=== PATIENT | female | born 1955 | race Caucasian/White ===

== ENCOUNTER 2017-08-27 00:27 | Inpatient (IN) | payer MEDICARE ==
[2017-08-27] MEDS: NITROGLYCERIN PREMIX 250 ML IV ×2 (00:34→07:34)
[2017-08-27 00:49] LABS: TROPONIN BY ISTAT 0.03 ng/ml (<0.08)
[2017-08-27 00:50] LABS: BASO # 0.1 x10^3/uL (0.0-0.2); BASO % 0 % (0-3); EOS # 0.3 x10^3/uL (0.0-0.7); EOS % 2 % (0-3); HEMATOCRIT 43.7 % (36.0-47.0); HEMOGLOBIN 14.5 g/dL (12.0-15.5); LYMPH # 10.9 x10^3/uL (1.0-4.8); LYMPH % 48 % (24-48); MEAN CORPUSCULAR HEMOGLOBIN 30 pg (25-35); MEAN CORPUSCULAR HGB CONC 33 g/dL (31-37); MEAN CORPUSCULAR VOLUME 89 fL (79-100); MONO # 1.9 x10^3/uL (0.0-1.1); MONO % 8 % (0-9); NEUT # 9.6 x10^3uL (1.8-7.7); NEUT % 42 % (31-73); PLATELET COUNT 567 x10^3/uL (140-400); RED CELL DISTRIBUTION WIDTH 14.5 % (11.5-14.5); WHITE BLOOD COUNT 22.8 x10^3/uL (4.0-11.0)
[2017-08-27 00:51] LABS: ADD MAN DIFF? YES
[2017-08-27 00:59] LABS: ANION GAP 13 (6-14); BLOOD UREA NITROGEN 21 mg/dL (7-20); BUN/CREATININE RATIO 16 (6-20); CALCIUM 8.9 mg/dL (8.5-10.1); CARBON DIOXIDE 26 mmol/L (21-32); CHLORIDE 102 mmol/L (98-107); CREATININE 1.3 mg/dL (0.6-1.0); GFR 41.4; GLUCOSE 354 mg/dL (70-99); INR 0.9 (0.8-1.1); POTASSIUM 4.8 mmol/L (3.5-5.1); PROTHROMBIN TIME PATIENT 11.4 SEC (11.7-14.0); SODIUM 141 mmol/L (136-145)
[2017-08-27] MEDS: ASPIRIN CHEWABLE 81 MG TABLET. PO ×2 (01:00→10:31)
[2017-08-27 01:07] LABS: ALBUMIN 2.2 g/dL (3.4-5.0); ALBUMIN/GLOBULIN RATIO 0.4 (1.0-1.7); ALK PHOS 156 U/L (46-116); ALT (SGPT) 26 U/L (14-59); AST (SGOT) 29 U/L (15-37); TOTAL BILIRUBIN 0.2 mg/dL (0.2-1.0); TOTAL PROTEIN 7.2 g/dL (6.4-8.2)
[2017-08-27 01:11] LABS: NT-PRO BNP 3648 pg/mL (0-124)
[2017-08-27 01:12] LABS: % ATYL 3 % (0-0); % EOS 2 % (0-5); % LYMPHS 48 % (24-48); % MONOS 6 % (0-10); % SEGS 41 % (35-66); PLT ESTIMATE INCREASED (ADEQUATE)
[2017-08-27] MEDS: FUROSEMIDE 40 MG/4 ML VIAL. IVP ×2 (01:35→10:29)
[2017-08-27 01:38] LABS: BASE EXCESS ABG -2 mmol/L (-3-3); HCO3 ABG 23 mmol/L (21-28); PCO2 ABG 40 mmHg (35-46); SAT O2 ABG 98 % (92-99)
[2017-08-27 01:39] LABS: PH ABG 7.38 (7.35-7.45)
[2017-08-27 07:25] LABS: TROPONINI 0.122 ng/mL (0.000-0.055)
[2017-08-27] MEDS ORDERED: DEXTROSE 50% 25 GM / 50ML DISP.SYRIN. IV (09:00)
[2017-08-27] MEDS ORDERED: NON FORMULARY ITEM (Buspirone Hcl 1 TAB) PO (09:00)
[2017-08-27] MEDS ORDERED: IPRATRPIUM/ALBUTEROL 0.5/2.5MG 3 ML NEBU. NEB (10:00)
[2017-08-27] MEDS ORDERED: SALIVA STIMULANT AGENT 44ML SPRAY BOTTLE. PO (10:00)
[2017-08-27 10:18] LABS: POC GLUCOSE 252 mg/dL (70-99)
[2017-08-27] MEDS: ENOXAPARIN 40 MG/0.4 ML SYRINGE. SQ ×2 (10:29→20:37)
[2017-08-27] MEDS: FAMOTIDINE 20 MG TABLET. PO ×2 (10:29→20:38)
[2017-08-27] MEDS: MORPHINE ER 30 MG TABLET.ER PO ×2 (10:30→17:04)
[2017-08-27] MEDS: CARVEDILOL 12.5 MG TABLET. PO ×2 (10:30→16:58)
[2017-08-27] MEDS ORDERED: ALBUTEROL SULFATE 2.5 MG/3 ML NEBU. NEB (10:30)
[2017-08-27] MEDS: GABAPENTIN 400 MG CAPSULE. PO ×3 (10:30→20:37)
[2017-08-27] MEDS: amLODIPine BESYLATE 10 MG TABLET PO (10:31)
[2017-08-27] MEDS: FUROSEMIDE 20 MG TABLET PO (10:31)
[2017-08-27] MEDS: busPIRone 5 MG TABLET. PO ×2 (10:31→20:38)
[2017-08-27] MEDS: INSULIN GLARGINE 300 UNITS/3 ML INSULN.PEN. SQ ×2 (10:48→20:45)
[2017-08-27] MEDS: INSULIN LISPRO 300 UNITS/3 ML INSULN.PEN. SQ ×4 (11:45→17:05)
[2017-08-27] MEDS ORDERED: NON FORMULARY ITEM (Albuterol Sulfate (Albuterol Sulfate Conc Neb Soln) 1 VIAL) NEB (12:00)
[2017-08-27] MEDS: BUDESONIDE 0.5 MG/2 ML NEBU. NEB ×2 (12:11→20:22)
[2017-08-27] MEDS: ALBUTEROL SULFATE 2.5 MG/3 ML NEBU. NEB ×4 (12:12→23:44)
[2017-08-27 15:09] LABS: MRSA BY PCR Negative (Negative)
[2017-08-27 17:04] LABS: POC GLUCOSE 236 mg/dL (70-99)
[2017-08-27 17:04] LABS: POC GLUCOSE 281 mg/dL (70-99)
[2017-08-27] MEDS ORDERED: INSULIN GLARGINE 300 UNITS/3 ML INSULN.PEN. SQ (18:00)
[2017-08-27] MEDS: NORTRIPTYLINE 25 MG CAPSULE PO (20:37)
[2017-08-27] MEDS: ATORVASTATIN CALCIUM 40 MG TABLET. PO (20:37)
[2017-08-27] MEDS: LISINOPRIL 20 MG TABLET PO (20:40)
[2017-08-27 20:48] LABS: POC GLUCOSE 205 mg/dL (70-99)
[2017-08-27] MEDS: ZOLPIDEM 5 MG TABLET. PO (20:54)
[2017-08-27] MEDS: oxyCODONE IR 5 MG TABLET PO (21:24)
[2017-08-28] MEDS: ALBUTEROL SULFATE 2.5 MG/3 ML NEBU. NEB ×8 (03:17→19:49)
[2017-08-28 07:15] LABS: ADD MAN DIFF? NO
[2017-08-28 07:29] LABS: BASO # 0.1 x10^3/uL (0.0-0.2); BASO % 1 % (0-3); EOS # 0.3 x10^3/uL (0.0-0.7); EOS % 2 % (0-3); HEMATOCRIT 31.7 % (36.0-47.0); HEMOGLOBIN 10.6 g/dL (12.0-15.5); LYMPH # 4.6 x10^3/uL (1.0-4.8); LYMPH % 33 % (24-48); MEAN CORPUSCULAR HEMOGLOBIN 29 pg (25-35); MEAN CORPUSCULAR HGB CONC 34 g/dL (31-37); MEAN CORPUSCULAR VOLUME 87 fL (79-100); MONO # 1.2 x10^3/uL (0.0-1.1); MONO % 9 % (0-9); NEUT # 7.8 x10^3uL (1.8-7.7); NEUT % 56 % (31-73); PLATELET COUNT 334 x10^3/uL (140-400); RED BLOOD COUNT 3.64 x10^6/uL (3.50-5.40)
[2017-08-28] MEDS: LEVOTHYROXINE 25 MCG TABLET. PO (07:44)
[2017-08-28] MEDS: LABETALOL 20 MG/4 ML DISP.SYRIN. IVP ×2 (07:45→11:17)
[2017-08-28] MEDS: INSULIN LISPRO 300 UNITS/3 ML INSULN.PEN. SQ ×6 (07:54→17:13)
[2017-08-28 07:55] LABS: ALBUMIN 1.9 g/dL (3.4-5.0); ALBUMIN/GLOBULIN RATIO 0.5 (1.0-1.7); ALK PHOS 104 U/L (46-116); ALT (SGPT) 19 U/L (14-59); ANION GAP 7 (6-14); AST (SGOT) 16 U/L (15-37); BLOOD UREA NITROGEN 22 mg/dL (7-20); BUN/CREATININE RATIO 22 (6-20); CALCIUM 8.1 mg/dL (8.5-10.1); CARBON DIOXIDE 29 mmol/L (21-32); CHLORIDE 105 mmol/L (98-107); GLUCOSE 133 mg/dL (70-99); POTASSIUM 3.9 mmol/L (3.5-5.1); SODIUM 141 mmol/L (136-145); TOTAL BILIRUBIN 0.3 mg/dL (0.2-1.0); TOTAL PROTEIN 5.8 g/dL (6.4-8.2)
[2017-08-28] MEDS: INSULIN GLARGINE 300 UNITS/3 ML INSULN.PEN. SQ ×2 (07:55→21:19)
[2017-08-28 07:57] LABS: POC GLUCOSE 160 mg/dL (70-99)
[2017-08-28] MEDS: BUDESONIDE 0.5 MG/2 ML NEBU. NEB ×2 (08:49→19:49)
[2017-08-28] MEDS: GABAPENTIN 400 MG CAPSULE. PO ×3 (09:35→21:12)
[2017-08-28] MEDS: ASPIRIN CHEWABLE 81 MG TABLET. PO (09:36)
[2017-08-28] MEDS: amLODIPine BESYLATE 10 MG TABLET PO (09:36)
[2017-08-28] MEDS: FAMOTIDINE 20 MG TABLET. PO ×2 (09:36→21:13)
[2017-08-28] MEDS: busPIRone 5 MG TABLET. PO ×2 (09:36→21:13)
[2017-08-28] MEDS: ENOXAPARIN 40 MG/0.4 ML SYRINGE. SQ ×2 (09:37→21:14)
[2017-08-28] MEDS: CARVEDILOL 12.5 MG TABLET. PO ×2 (09:37→17:08)
[2017-08-28] MEDS: MORPHINE ER 30 MG TABLET.ER PO ×2 (09:37→17:08)
[2017-08-28] MEDS: FUROSEMIDE 20 MG TABLET PO (09:39)
[2017-08-28] MEDS: LISINOPRIL 10 MG TABLET PO (12:38)
[2017-08-28 12:42] LABS: POC GLUCOSE 275 mg/dL (70-99)
[2017-08-28] MEDS ORDERED: ONDANSETRON PF 4 MG/2 ML VIAL. IV (14:15)
[2017-08-28] MEDS ORDERED: DOCUSATE SODIUM 100 MG CAPSULE. PO (14:15)
[2017-08-28] MEDS ORDERED: MORPHINE SULFATE 4 MG/ML DISP.SYRIN. IV (14:15)
[2017-08-28] MEDS ORDERED: traMADol 50 MG TABLET PO (14:15)
[2017-08-28] MEDS ORDERED: ACETAMINOPHEN 325 MG TABLET. PO (14:15)
[2017-08-28] MEDS: hydrALAZINE 20 MG/ML VIAL. IVP (15:37)
[2017-08-28 16:54] LABS: POC GLUCOSE 190 mg/dL (70-99)
[2017-08-28] MEDS: ALPRAZolam 0.25 MG TABLET PO (17:08)
[2017-08-28 20:56] LABS: POC GLUCOSE 177 mg/dL (70-99)
[2017-08-28] MEDS: ATORVASTATIN CALCIUM 40 MG TABLET. PO (21:12)
[2017-08-28] MEDS: ZOLPIDEM 5 MG TABLET. PO (21:12)
[2017-08-28] MEDS: NORTRIPTYLINE 25 MG CAPSULE PO (21:12)
[2017-08-28] MEDS: LISINOPRIL 20 MG TABLET PO (21:13)
[2017-08-29 04:15] LABS: ADD MAN DIFF? NO
[2017-08-29 04:17] LABS: BASO % 0 % (0-3); EOS # 0.3 x10^3/uL (0.0-0.7); EOS % 2 % (0-3); HEMATOCRIT 31.1 % (36.0-47.0); HEMOGLOBIN 10.4 g/dL (12.0-15.5); LYMPH # 3.8 x10^3/uL (1.0-4.8); LYMPH % 30 % (24-48); MEAN CORPUSCULAR HEMOGLOBIN 29 pg (25-35); MEAN CORPUSCULAR HGB CONC 34 g/dL (31-37); MEAN CORPUSCULAR VOLUME 88 fL (79-100); MONO # 1.4 x10^3/uL (0.0-1.1); MONO % 11 % (0-9); NEUT % 56 % (31-73); PLATELET COUNT 337 x10^3/uL (140-400); RED BLOOD COUNT 3.54 x10^6/uL (3.50-5.40); WHITE BLOOD COUNT 12.5 x10^3/uL (4.0-11.0)
[2017-08-29 04:44] LABS: ANION GAP 6 (6-14); BLOOD UREA NITROGEN 19 mg/dL (7-20); CALCIUM 8.4 mg/dL (8.5-10.1); CARBON DIOXIDE 30 mmol/L (21-32); CHLORIDE 106 mmol/L (98-107); GLUCOSE 163 mg/dL (70-99); POTASSIUM 4.1 mmol/L (3.5-5.1); SODIUM 142 mmol/L (136-145)
[2017-08-29] MEDS: BUDESONIDE 0.5 MG/2 ML NEBU. NEB ×2 (07:37→20:00)
[2017-08-29] MEDS: ALBUTEROL SULFATE 2.5 MG/3 ML NEBU. NEB ×4 (07:38→18:15)
[2017-08-29] MEDS: INSULIN LISPRO 300 UNITS/3 ML INSULN.PEN. SQ ×6 (08:00→18:20)
[2017-08-29 08:15] LABS: POC GLUCOSE 156 mg/dL (70-99)
[2017-08-29] MEDS: ASPIRIN CHEWABLE 81 MG TABLET. PO (09:19)
[2017-08-29] MEDS: GABAPENTIN 400 MG CAPSULE. PO ×3 (09:19→21:54)
[2017-08-29] MEDS: FAMOTIDINE 20 MG TABLET. PO ×2 (09:19→21:55)
[2017-08-29] MEDS: busPIRone 5 MG TABLET. PO ×2 (09:20→21:54)
[2017-08-29] MEDS: LEVOTHYROXINE 25 MCG TABLET. PO (09:20)
[2017-08-29] MEDS: MORPHINE ER 30 MG TABLET.ER PO ×2 (09:20→18:15)
[2017-08-29] MEDS: CARVEDILOL 12.5 MG TABLET. PO ×2 (09:21→18:15)
[2017-08-29] MEDS: amLODIPine BESYLATE 10 MG TABLET PO (09:21)
[2017-08-29] MEDS: FUROSEMIDE 20 MG TABLET PO (09:21)
[2017-08-29] MEDS: ENOXAPARIN 40 MG/0.4 ML SYRINGE. SQ (09:22)
[2017-08-29] MEDS: INSULIN GLARGINE 300 UNITS/3 ML INSULN.PEN. SQ ×2 (09:30→21:56)
[2017-08-29 11:44] LABS: POC GLUCOSE 296 mg/dL (70-99)
[2017-08-29] MEDS: BUTALB/APAP/CAFEIN 50/325/40MG TABLET. PO ×2 (13:34→21:53)
[2017-08-29 16:46] LABS: POC GLUCOSE 133 mg/dL (70-99)
[2017-08-29 20:42] LABS: POC GLUCOSE 198 mg/dL (70-99)
[2017-08-29] MEDS: LISINOPRIL 20 MG TABLET PO (21:54)
[2017-08-29] MEDS: ATORVASTATIN CALCIUM 40 MG TABLET. PO (21:54)
[2017-08-29] MEDS: NORTRIPTYLINE 25 MG CAPSULE PO (21:54)
[2017-08-29] MEDS: ZOLPIDEM 5 MG TABLET. PO (21:55)
[2017-08-29] MEDS: ALPRAZolam 0.25 MG TABLET PO (23:54)
[2017-08-30 01:08] LABS: THYROID STIM HORMONE (TSH) 13.431 uIU/mL (0.358-3.74)
[2017-08-30] MEDS: oxyCODONE IR 5 MG TABLET PO (05:35)
[2017-08-30] MEDS: BUDESONIDE 0.5 MG/2 ML NEBU. NEB (06:05)
[2017-08-30] MEDS: ALBUTEROL SULFATE 2.5 MG/3 ML NEBU. NEB ×2 (06:05→11:30)
[2017-08-30] MEDS: INSULIN LISPRO 300 UNITS/3 ML INSULN.PEN. SQ ×2 (08:00→08:43)
[2017-08-30] MEDS: LEVOTHYROXINE 25 MCG TABLET. PO (08:37)
[2017-08-30] MEDS: FUROSEMIDE 20 MG TABLET PO (08:37)
[2017-08-30] MEDS: amLODIPine BESYLATE 10 MG TABLET PO (08:38)
[2017-08-30] MEDS: hydrALAZINE 25 MG TABLET PO (08:38)
[2017-08-30] MEDS: ASPIRIN CHEWABLE 81 MG TABLET. PO (08:39)
[2017-08-30] MEDS: FAMOTIDINE 20 MG TABLET. PO (08:39)
[2017-08-30] MEDS: CARVEDILOL 12.5 MG TABLET. PO (08:39)
[2017-08-30] MEDS: MORPHINE ER 30 MG TABLET.ER PO (08:40)
[2017-08-30] MEDS: busPIRone 5 MG TABLET. PO (08:40)
[2017-08-30] MEDS: PREGABALIN 75 MG CAPSULE PO (08:40)
[2017-08-30] MEDS: ALPRAZolam 0.25 MG TABLET PO (08:40)
[2017-08-30] MEDS: INSULIN GLARGINE 300 UNITS/3 ML INSULN.PEN. SQ (08:42)
[2017-08-30] MEDS: ENOXAPARIN 40 MG/0.4 ML SYRINGE. SQ (08:44)
[2017-08-30 10:11] LABS: POC GLUCOSE 138 mg/dL (70-99)
[2017-08-30 11:56] LABS: FREE T4 0.65 ng/dL (0.76-1.46)
[2017-08-30 12:06] LABS: POC GLUCOSE 204 mg/dL (70-99)
[2017-08-31] MEDS ORDERED: LEVOTHYROXINE 100 MCG TABLET PO (07:00)
== END 2017-08-30 15:45 | disposition home health service (06) | DRG 291 ==
LOC: 2 SOUTH 08-28 14:19 → ER 00:27 → 1 WEST ICU 02:30
PROVIDERS: Internal Medicine
PROC: 5A09357 Assistance with Respiratory Ventilation, Less than 24 Consecutive Hours, Continuous Positive Airway Pressure (ICD-10-PCS; principal; 2017-08-27)
DX: I13.0 Hypertensive heart and chronic kidney disease with heart failure and stage 1 through stage 4 chronic kidney disease, or unspecified chronic kidney disease (principal); J96.21 Acute and chronic respiratory failure with hypoxia; E43 Unspecified severe protein-calorie malnutrition; E11.22 Type 2 diabetes mellitus with diabetic chronic kidney disease; E11.40 Type 2 diabetes mellitus with diabetic neuropathy, unspecified; R65.10 Systemic inflammatory response syndrome (SIRS) of non-infectious origin without acute organ dysfunction; E66.01 Morbid (severe) obesity due to excess calories; I50.43 Acute on chronic combined systolic (congestive) and diastolic (congestive) heart failure; Z68.41 Body mass index [BMI] 40.0-44.9, adult; I16.1 Hypertensive emergency; I42.9 Cardiomyopathy, unspecified; I48.91 Unspecified atrial fibrillation; E03.9 Hypothyroidism, unspecified; E78.5 Hyperlipidemia, unspecified; G44.229 Chronic tension-type headache, not intractable; G47.33 Obstructive sleep apnea (adult) (pediatric); G56.20 Lesion of ulnar nerve, unspecified upper limb; I25.10 Atherosclerotic heart disease of native coronary artery without angina pectoris; J44.9 Chronic obstructive pulmonary disease, unspecified; K21.9 Gastro-esophageal reflux disease without esophagitis; N18.3 Chronic kidney disease, stage 3 (moderate); E11.51 Type 2 diabetes mellitus with diabetic peripheral angiopathy without gangrene; F32.9 Major depressive disorder, single episode, unspecified; E11.65 Type 2 diabetes mellitus with hyperglycemia; F41.9 Anxiety disorder, unspecified; G89.29 Other chronic pain; M19.90 Unspecified osteoarthritis, unspecified site; I25.2 Old myocardial infarction; Z72.0 Tobacco use; Z95.5 Presence of coronary angioplasty implant and graft; Z99.81 Dependence on supplemental oxygen; Z90.710 Acquired absence of both cervix and uterus; Z79.4 Long term (current) use of insulin; Z79.899 Other long term (current) drug therapy; Z86.73 Personal history of transient ischemic attack (TIA), and cerebral infarction without residual deficits; Z80.3 Family history of malignant neoplasm of breast; Z82.3 Family history of stroke; Z82.49 Family history of ischemic heart disease and other diseases of the circulatory system
CPT/HCPCS: 36415; 36600; 71045; 80048; 80053; 82805; 82962; 83880; 84439; 84443; 84481; 84484; 85007; 85025; 85610; 87641; 93005; 93306; 94640; 94660; 94760; 96365; 96375; 97110-GP; 97116-GP; 97161-GP; 97166-GO; 97535-GO; 99291; 99291-25; J0360; J1650; J1815; J1940; J2060; J3490; J7050; J7613; J7626